=== PATIENT | male | born 1940 | race Caucasian/White ===

== ENCOUNTER 2020-09-11 19:28 | Emergency (ER) | payer OTHER, BC ==
[~2020-09-11] VITALS: Ht 182.9 cm; Wt 100.2 kg
--- NOTE | ~2020-09-11 | EMS ---
[facility] [address] [place] [address] EMS Patient Care Report Name: GUY PAREKH Room #: REG Jose Manuel#: [id number] Admission: 09/11/20 Attend Phys: Discharge: Date of : 38 Report #: [id number] THIS REPORT FOR: //name// Report Transmitted: 09/11/2020 19:18 EMS Care Summary [facility] MED-ACT Incident [id number] @ 09/11/2020 18:47 Incident Location [address] [address] Patient GUY PAREKH Male, 80 Years 1940 Patient Address [address] [place] [address] [place] [address] Patient History Hip Replacement, Patient Allergies No known allergies, Chief Complaint left hip pian Disposition Transported No Lights/Lane Dispatch Reason Falls Transported To [facility] Narrative Arriving on scene to find the patient, Guy Parekh, lying on the side of the sidewalk and appearing to be in no obvious distress. Guy stated that he was not injured and just needed help up. When assisting Guy to his feet he started saying that his left hip hurts very bad and thinks it got dislocated again. EMS assisted Guy to the cot via stand and sit. He stated that he had a slip and fall and has also had both hips replaced. He rated his hip pain to [address] [address] EMS Patient Care Report Name: GUY PAREKH Room #: REG [facility]#: [id number] Admission: 09/11/20 Attend Phys: Discharge: Date of : 38 Report #: [id number] be a 8 out of 10. He requested that EMS transport to [facility]. Transporting to [facility], he was given Fentanyl to help with the hip pain. There were no other additional findings on continuous assessments. Arriving at [facility] ED, Guy was taken to room 10 and moved via lateral sheet drag onto the hospital bed. Report and care was given to RN. Initial Vitals @19:15P: 82,BP: 159/84,SpO2: 98, @19:05P: 86, @19:01P: 89,R: 14,BP: 166/89,Pain: 8/10,GCS: 15,SpO2: 98,Revised Trauma: 12, @19:05P: 85,SpO2: 100, @19:23P: 81,BP: 152/80, @19:18P: 37,SpO2: 90, Assessments @18:58MENTAL:Person Oriented,Time Oriented,Place Oriented,Event Oriented,SKIN:HEENT:Head/Face: No Abnormalities,LUNG SOUNDS:General: No Abnormalities,ABDOMEN:General: No Abnormalities,PELVIS//GI:Tenderness,Pelvis Other,EXTREMITIES:Left Leg: Weakness,Right Arm: Paralysis,Left Leg: Other,Left Arm: No Abnormalities,Right Leg: No Abnormalities,PULSE:NEURO:No Abnormalities, Impression Injury of Hip Procedures @19:11Fentanyl - 100 Micrograms (mcg) - Intravenous (IV)Response: Improved@19:20Fentanyl - 50 Micrograms (mcg) - Intravenous (IV)Response: Improved@19:05Saline Lock 20cc (20 ga) Site: Antecubital-LeftResponse: [email or web address] Mask on PatientResponse: Unchanged Timeline TELEPHONE CLERK TELEGRAPH OFFICE,Surgical Mask on Patient,Response: Unchanged 18:46,Call Received 18:46,Psap Call 18:47,Dispatched 18:48,En Route 18:53,On Scene 18:54,At Patient 19:01,BP: 166/89 M,PULSE: 89,RR: 14 R,SPO2: 98 Ox,ETCO2: ,BG: ,PAIN: 8,GCS: 15, 19:05,Saline Lock 20cc 20 ga Site: Antecubital-Left,Response: UnchangedSucceeded, 19:05,BP: / M,PULSE: 85,RR: R,SPO2: 100 Ox,ETCO2: ,BG: ,PAIN: ,GCS: , 19:05,BP: / M,PULSE: 86,RR: R,SPO2: Ox,ETCO2: ,BG: ,PAIN: ,GCS: , 19:07,Depart Scene 19:11,Fentanyl - 100 Micrograms (mcg) - Intravenous (IV),Response: Improved 19:15,BP: 159/84 M,PULSE: 82,RR: R,SPO2: 98 Ox,ETCO2: ,BG: ,PAIN: ,GCS: , [address] [address] EMS Patient Care Report Name: GUY PAREKH Room #: REG [place] Richard#: [id number] Admission: 09/11/20 Attend Phys: Discharge: Date of : 38 Report #: [id number] 19:18,BP: / M,PULSE: 37,RR: R,SPO2: 90 Ox,ETCO2: ,BG: ,PAIN: ,GCS: , 19:20,Fentanyl - 50 Micrograms (mcg) - Intravenous (IV),Response: Improved 19:23,BP: 152/80 M,PULSE: 81,RR: R,SPO2: Ox,ETCO2: ,BG: ,PAIN: ,GCS: , 19:23,At Destination 19:39,Call Closed Disclaimer [email or web address] Copyright 2020 [employer] This EMS Care Summary contains data elements from the applicable legal record (which may be displayed differently). It is designed to provide pertinent information for the following purposes: continuity of care, clinical quality, and state data reporting. The complete legal record is available to ED staff and administrators of the receiving hospital in [employer] Patient Tracker. All data is provided "as is."
[2020-09-11 21:35] VITALS: BP 121/55
[2020-09-11] MEDS ORDERED: HYDROCODON-ACE1 EAC7 PO (21:36)
== END 2020-09-11 21:58 | disposition home or self-care (01) ==
LOC: ER 19:28
DX: T84.021A Dislocation of internal left hip prosthesis, initial encounter (principal); Z87.891 Personal history of nicotine dependence; W18.39XA Other fall on same level, initial encounter; Y93.89 Activity, other specified; Y92.89 Other specified places as the place of occurrence of the external cause; Y99.8 Other external cause status